=== PATIENT | female | born 1970 | race African-American/Black ===

== ENCOUNTER 2019-11-08 08:29 | Outpatient (CLI) | payer OTHER | END 2019-11-08 19:52 | disposition home or self-care (01) | LOC: MAMMO 08:29 | DX: Z12.31 Encounter for screening mammogram for malignant neoplasm of breast (principal) ==

== ENCOUNTER 2019-11-18 09:21 | Outpatient (CLI) | payer OTHER | END 2019-11-18 19:12 | disposition home or self-care (01) | LOC: MAMMO 09:21 | DX: R92.2 Inconclusive mammogram (principal) ==

== ENCOUNTER 2021-04-27 14:54 | Outpatient (CLI) | payer OTHER | END 2021-04-27 19:20 | disposition home or self-care (01) | LOC: MAMMO 14:54 | PROVIDERS: ATTEND Internal Medicine | DX: Z12.31 Encounter for screening mammogram for malignant neoplasm of breast (principal) ==

== ENCOUNTER 2022-11-29 08:19 | Outpatient (CLI) | payer OTHER | END 2022-11-29 23:04 | disposition home or self-care (01) | LOC: MAMMO 08:19 | PROVIDERS: ATTEND Internal Medicine | DX: Z12.31 Encounter for screening mammogram for malignant neoplasm of breast (principal) ==

== ENCOUNTER 2023-05-02 16:24 | Outpatient (CLI) | payer OTHER | END 2023-05-02 19:31 | disposition home or self-care (01) | LOC: RAD 16:24 | PROVIDERS: ATTEND Nurse Practitioner Family | DX: J40 Bronchitis, not specified as acute or chronic (principal) ==

== ENCOUNTER 2023-05-29 04:37 | Emergency (ER) | payer OTHER ==
[~2023-05-29] VITALS: Ht 162.6 cm; Wt 87.1 kg
[2023-05-29 04:38] VITALS: TEMP 97
[2023-05-29 06:00] VITALS: BP 124/86
== END 2023-05-29 06:00 | disposition home or self-care (01) ==
LOC: ED 04:37
DX: J45.901 Unspecified asthma with (acute) exacerbation (principal)
CPT/HCPCS: 94664; 99282